=== PATIENT | female | born 1935 | race Caucasian/White ===

== ENCOUNTER 2016-07-09 15:59 | Inpatient (IN) | payer MEDICARE, BC ==
--- NOTE | ~2016-07-09 | HP ---
History And Physical [facility] [address] [place]. [address] NAME: ANANDA SOTO : 34 STATUS : ADM Vy PAT#: [id number] AGE: 81 ADM/REG DATE : 07/09/16 MR#: [id number] REPORT SERV DATE: 07/09/16 DICTATED BY: SANDY REESE DATE: 07/09/16 REPORT STATUS : Draft TRANSCRIBED BY: MODBarbara DATE: 07/09/16 DATE OF ADMISSION: 07/09/2016 CHIEF COMPLAINT: Inability to walk. HISTORY OF PRESENT ILLNESS: The patient is an 81-year-old female. She has a past medical history significant for 1. Atrial fibrillation. She is on chronic Coumadin anticoagulation. 2. She also has a history of hypothyroidism. 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 The patient states that around 2 a.m., she got up to use the restroom and everything was fine. When she got up again between 4 and 4:30 this morning, she noticed that she was unable to hold her balance. She tried to walk to the bathroom and was waving side to side. She was able to bear her own weight but she was not able to walk unassisted without holding onto something. She did not report nausea. She did not report dizziness like she had with her previous hospitalization. She did not feel like her fibrillation was any different. She went to a recliner and throughout the day, had recurrent symptoms, every time she tried to stand up. Her was not supporting her weight but helping her with balance and coordination, back and forth to the bathroom today. When her symptoms did not resolve, she came to the emergency department, that was at least 8 hours after the presumed onset of her symptoms as late as 4:30. Her symptoms have not changed since being here. She states unlike the previous episode, she has not had the degree of dizziness that she had before. She does not describe any visual changes. She does not describe any inner ear pain or trouble hearing or recent sinus symptoms. Her describes her symptoms as more like "being drunk". She is not complaining of any focal weakness. He states she is just generally weak all over. She does note that she was told yesterday her Coumadin number was subtherapeutic and she was told to take a double dose of her Coumadin which she did. Her INR today is 1.3. PAST MEDICAL HISTORY: Otherwise unremarkable. PAST SURGICAL HISTORY: She had a knee surgery in the past. CURRENT MEDICATIONS: Artificial Tears; vitamin C; vitamin D; MSN; Neurontin 600 in the morning, 2400 in the evening; glucosamine; [place] 5/325, Xalatan eyedrops; Synthroid 25; multivitamin; fish oil; Theragran capsule b.i.d.; zinc; and Coumadin 2 mg at bedtime. ALLERGIES: TO SULFA, TETANUS, BISPHOSPHONATES AND IBANDRONATE SODIUM. FAMILY HISTORY: Father passed of heart problems. Mother, CVA. SOCIAL HISTORY: Nondrinker, nonsmoker. REVIEW OF SYSTEMS: History And Physical [address] [address] NAME: ANANDA SOTO : 34 STATUS : ADM Vy PAT#: [id number] AGE: 81 ADM/REG DATE : 07/09/16 MR#: [id number] REPORT SERV DATE: 07/09/16 DICTATED BY: SANDY REESE DATE: 07/09/16 REPORT STATUS : Draft TRANSCRIBED BY: SEBASTIAN DATE: 07/09/16 HEENT as covered in HPI. CARDIOVASCULAR: No chest pain or palpitations. PULMONARY: No shortness of breath. GI: No nausea or vomiting. : No dysuria. NEUROMUSCULOSKELETAL: As covered in HPI. Otherwise 10-point review of systems negative. PHYSICAL EXAMINATION: VITAL SIGNS: Blood pressure 134/70, temperature 98, pulse 72, respirations 16, and sat 100%. GENERAL: She is awake, alert, oriented, in no acute distress. HEENT: Normocephalic, atraumatic. Sclerae nonicteric. NECK: Supple. HEART: Regular rate and rhythm. LUNGS: Clear to auscultation. ABDOMEN: Nontender. Nondistended. EXTREMITIES: Without edema. 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 Her coordination seems to be intact. No past-pointing. No obvious visual changes. No cranial nerve deficit. Lower extremity, she has 3 to 4/5 bilateral lower extremity strength. Her gait was not retested but according to the ER, the patient was able to bear weight but had difficulty with balance and coordination. LAB DATA: CT scan of the brain shows no acute intracranial bleed, mild atrophy. Labs, sodium 142, potassium 4.2, chloride 103, CO2 of 30, BUN and creatinine 21 and 0.7. Glucose of 91. Troponin 0.02. White count 5.1, H and H 12.9 and 39.7, and platelets of 206. Urinalysis, trace ketones, nitrite positive for wbc's, rare bacteria. ASSESSMENT: Weakness, incoordination. Differential would be WINDOW SHADE RING SEWER related to either her previous small vertebral or her atrial fib on subtherapeutic anticoagulation, seems to have minimal symptoms to suggest vertigo or inner ear. Certainly other diagnoses are possible. PLAN: 1. The patient has been admitted. 2. NeuroCheks. 3. We will attempt to discuss with Neurology this evening weighing her potential stroke risk versus bleeding risk versus subtherapeutic INR on atrial fib. Reasonable blood pressure control this evening. PT evaluation. TLF/BRIDGERL Sandy Reese M.D. / [id number] History And Physical [address] [address] NAME: ANANDA SOTO : 34 STATUS : ADM Vy PAT#: [id number] AGE: 81 ADM/REG DATE : 07/09/16 MR#: [id number] REPORT SERV DATE: 07/09/16 DICTATED BY: SANDY REESE DATE: 07/09/16 REPORT STATUS : Draft TRANSCRIBED BY: MODL DATE: 07/09/16 CC: Crissy Frias M.D.
--- NOTE | ~2016-07-09 | CN ---
Consultation Report [facility] [address] [place]. [address] NAME: ANANDA SOTO : 34 STATUS : ADM Vy PAT#: [id number] AGE: 81 ADM/REG DATE : 07/09/16 MR#: [id number] REPORT SERV DATE: 07/10/16 DICTATED BY: DATE: REPORT STATUS : Draft TRANSCRIBED BY: MODL DATE: 07/10/16 NEUROLOGY CONSULTATION DATE OF CONSULTATION: 07/10/2016 REASON FOR CONSULT: Gait abnormality. HISTORY OF PRESENT ILLNESS: This is an 81-year-old female who presented to [facility] secondary to acute onset of gait abnormality. Reports symptoms started when the patient was awake at roughly 4 o'clock in the morning on 07/09/2016. The patient was noted to have difficulty walking. Per H and P, the patient supposedly was noted to have balance issue, so according to the patient she reports difficulty to move bilateral lower extremity. Reports when she stands up, feel like bilateral lower extremities are weak in strength and have to give out. The patient reports the symptom has remained stable without significant changes. Denies weakness in bilateral upper extremity and denies any diplopia. Denies any sensory changes and denies any dysarthria. The patient denies similar symptoms in the past. The patient does report bilateral lower extremity neuropathy with numbness in bilateral lower extremity ongoing for several years without significant changes. No reports of recent bowel or bladder difficulties, although the patient does report diarrhea since the hospital admission. The patient denies any recent illness, fever, chills, nausea, vomiting, chest pain, or shortness of breath, and denies any recent infections. The patient in addition also denies any recent changes in medication. PAST MEDICAL HISTORY: Significant for atrial fibrillation, peripheral neuropathy. The patient was noted to have bilateral lower extremity numbness that has been ongoing for several years. The patient is on chronic anticoagulation secondary to atrial fibrillation as well as history of hypothyroidism. SOCIAL HISTORY: Denies tobacco, alcohol, or recreational drug usage. FAMILY HISTORY: Significant for heart disease as well as stroke. ALLERGIES: THE PATIENT REPORTS ALLERGY TO SULFA, TETANUS, BISPHOSPHONATES, WELL IBANDRONATE. MEDICATIONS: The patient's home medications consist of Coumadin as well as Artificial Tear, vitamin C, vitamin B12, Neurontin, glucosamine, hydrocodone, Xalatan eyedrops, Synthroid, multivitamin, and fish oil. REVIEW OF SYSTEMS: Negative except for those mentioned in HPI. PHYSICAL EXAMINATION: VITAL SIGNS: At the time of evaluation, the patient was noted to have vital signs with T- Consultation Report [place] [id number] [facility] [place]. [address] NAME: ANANDA SOTO : 34 STATUS : ADM Vy PAT#: [id number] AGE: 81 ADM/REG DATE : 07/09/16 MR#: [id number] REPORT SERV DATE: 07/10/16 DICTATED BY: DATE: REPORT STATUS : Draft TRANSCRIBED BY: MODL DATE: 07/10/16 max of 98.4, heart rate of 66 to 95, respiration of 18 to 23, blood pressure of 130 to 134 over 60 to 68. GENERAL: The patient is well developed, well nourished, in no acute distress. CARDIOVASCULAR: Regular rate and rhythm. NECK: No carotid bruits were otherwise auscultated. PULMONARY: Clear to auscultation bilaterally. NEUROLOGIC: Generally, the patient is alert, oriented to person, place, year, as well as month. Follows simple and two-step commands. No dysarthria or aphasia was noted at time of evaluation. Intact registration. Mild difficulties with recall. Cranial nerves 2 through 12. Pupils are equal, round, and reactive to light. Extraocular eye movement was noted to be intact. No clear dysconjugate gaze was seen. The patient denies any diplopia. She was noted to have intact peripheral vision by erdsn-jk-djneag response. Symmetrical facial expression and sensation. Midline tongue. Normal palatal movement. Mild decreased hearing in bilateral ears. 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 Normal emxmdg-sb-dzsm examination without ataxia. Reports symmetrical sensation in bilateral upper extremity, 4/5,bilateral lower extremity proximal strength, 4+/5 bilateral lower extremity distal strength, reports absent sensation in bilateral feet. The patient reports decreased sensation in bilateral lower extremity around bilateral knee. The patient was noted to be areflexic. The patient demonstrate mildly wide-based gait as well as unsteady gait. The patient was noted to have bilateral lower extremity peripheral weakness when ambulating. No asterixis or myoclonus was observed during the evaluation. LABORATORY STUDIES: Demonstrated white blood cell count of 5.1, hemoglobin of 12.9, hematocrit of 39.7, platelet count of 206. The patient was also noted to have an INR 1.5. Chemistry panel: Sodium 142, potassium 4.2, chloride 103, bicarb 30, BUN of 21, creatinine 0.70, glucose of 91, calcium of 8.7, serum TSH was 1.05. Urinalysis demonstrated negative leukocyte esterase, positive nitrite. CT scan of the brain otherwise demonstrated no acute process. IMPRESSION: Gait abnormality. The patient reports weakness in bilateral lower extremity that is acute onset, otherwise on examination the patient was noted to be areflexic. The patient was noted to have weakness in proximal bilateral lower extremity as well as bilateral upper extremity, concern for possible stroke versus Guillain-Talco syndrome. We will obtain MRI of the brain as well as C-spine for evaluation. We will check the patient's ammonia, vitamin B12, folate, CPK level with morning labs. If the patient's MRI of brain and C-spine is otherwise negative, we will obtain a lumbar puncture for evaluation and start the patient on IVIG. Meanwhile, we will obtain PT and OT evaluation and treatment. RECOMMENDATION: 1. MRI of the brain and C-spine without contrast. 2. PT/OT. 3. Fasting lipid panel, hemoglobin A1c, CPK, ammonia, folate, vitamin B12 level with morning labs. 4. Aspirin and Coumadin. Consultation Report [address] [place]. [address] NAME: ANANDA SOTO : 34 STATUS : ADM Vy PAT#: [id number] AGE: 81 ADM/REG DATE : 07/09/16 MR#: [id number] REPORT SERV DATE: 07/10/16 DICTATED BY: DATE: REPORT STATUS : Draft TRANSCRIBED BY: MODL DATE: 07/10/16 5. Lipitor 80 mg p.o. at bedtime. 6. Respiratory therapist for NIF and vital capacity. Check UT. 7. Lumbar puncture if MRI of the brain and C-spine is otherwise negative. [facility]/MODL Pradeep Villeda MD / [id number] CC: MD Crissy Real II, M.D.
--- NOTE | ~2016-07-09 | DS ---
Discharge Summary [facility] [address] [place]. [address] NAME: ANANDA SOTO : 34 STATUS : DIS IN PAT#: [id number] AGE: 81 ADM/REG DATE : 07/10/16 MR#: [id number] REPORT SERV DATE: 07/12/16 DICTATED BY: DATE: REPORT STATUS : Draft TRANSCRIBED BY: MODL DATE: 07/11/16 ADMISSION DATE: 07/10/2016 DISCHARGE DATE: 07/11/2016 PRIMARY NEUROLOGIST: Abdiaziz Flores M.D., PhD. DISCHARGE DIAGNOSES: 1. Bilateral lower extremity weakness/gait abnormality, resolved. 2. Paroxysmal atrial fibrillation. 3. Chronic peripheral neuropathy. 4. Chronic hypothyroidism. CONSULTATIONS: Dr. Lauren Villeda, Neurology. PERTINENT TEST AND PROCEDURES: 1. CT of the brain without contrast, 07/09/2016, impression: Exam is negative for any acute intracranial bleed. Mild atrophy. 2. Echocardiogram, 07/10/2016, summary: Normal left ventricular size with moderate global left ventricular systolic dysfunction. Ejection fraction 35% to 40%. Mild left ventricular diastolic function. Normal right ventricular size and systolic function. Lxxx-bf-kixvkkeu severe mitral annular calcification. Mitral valve leaflets thickened with mildly restricted leaflet mobility. Aortic valve is mildly calcified with preserved leaflet mobility. Mild aortic and mitral regurgitation. No significant aortic stenosis or mitral stenosis noted. No pericardial effusion. No evidence of a pleural effusion. 3. MRI of the cervical spine, 07/10/2016, impression:. a. Posterior disk osteophyte complexes from C4 through 5 through C6 through 7 producing mild multilevel spinal canal narrowing. No cord deformity or abnormal cord signal identified. b. Neural foramina are not optimally evaluated due to patient motion. Appears to be multilevel neural foraminal narrowing from C4 through C5 through C6 through C7 bilaterally. 4. MRI of brain without contrast, 07/10/2016, impression: No acute intracranial abnormality. Mild cortical volume loss and findings compatible with mild chronic deep white matter ischemic changes. 5. MRIP/MRAG of neck without contrast, 07/10/2016, impression:. a. Poor signal in the internal carotid arteries bilateral at the level of the skull base likely due to patient motion and direction of flow. b. No high-grade stenosis seen involving the cervical portions of the common or internal carotid arteries bilaterally. c. 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 d. Widely patent dominant right vertebral artery. Left vertebral artery is a nondominant small caliber vessel and appears to terminate at the PICA level and does not supply the basilar artery. 6. MRIP/MRI of brain without contrast:. Discharge Summary [facility] [address] [place]. [address] NAME: ANANDA SOTO : 34 STATUS : DIS IN PAT#: [id number] AGE: 81 ADM/REG DATE : 07/10/16 MR#: [id number] REPORT SERV DATE: 07/12/16 DICTATED BY: DATE: REPORT STATUS : Draft TRANSCRIBED BY: MODL DATE: 07/11/16 a. No acute intracranial abnormality appreciated. b. Mild cortical volume loss and findings compatible with mild chronic deep white matter ischemic changes. 7. Urinalysis specimen collected 07/09, result negative. CHIEF COMPLAINT UPON ADMISSION: Inability to walk. HOSPITAL COURSE: Please refer to history and physical dated 07/09/2016, provided by Dr. Radhames Rodrigues for complete details of patient's initial presentation upon admission and health history. Please also refer to consultation dated 07/10/2016, provided by Dr. Lauren Villeda, Neurology. Briefly, the patient is an 81-year-old female who presented to [facility] on 06/08 with complaints of gait abnormality. Per patient's report, symptoms started around 4 a.m. on the day of admission. The patient reported difficulty walking due to an acute onset of a balance issue. The patient also stated she had difficulty moving bilateral lower extremities due to weakness. Prior to admission, the patient remained home throughout the day, suffering from recurrent symptoms without relief. The patient's described her symptoms like "being drunk." There were no complaints of focal weakness, just general weakness all over. The patient was admitted for further evaluation and diagnostic testing to rule out COMMERCIAL ANALYST related etiology. Neurology was consulted and has followed the patient since admission. 1. Bilateral lower extremity weakness/gait abnormality, acute onset. The patient's gait has continued to improve throughout admission and has almost returned to baseline. Neurology was consulted on 06/09. Initial workup included MRI of the brain and C-spine in addition to fasting lab work to include fasting lipid panel, hemoglobin A1c, CPK, ammonia, folate, and vitamin B12 levels. Initial differential diagnosis included concern for possible stroke versus Guillain-Pax syndrome. MRI of the brain was negative for any acute events. MRA of head and neck negative for significant stenosis. MRI of C-spine negative for cord compression. Echocardiogram was negative for apical thrombus. A final Neurology impression was questionable mild Guillain-Pax syndrome. Initial plan was to proceed with lumbar puncture and IVIG treatment. However, the patient wished to go home secondary to improving during admission. The patient was discharged from Neurology's care with recommendations to follow up with primary care physician in one-two weeks and PT/OT home healthcare evaluation and treat. 2. Paroxysmal atrial fibrillation. The patient is on chronic anticoagulation with warfarin. INR is managed on an outpatient basis. The patient's last INR check was 06/07, at which time INR was reported to be "low" per patient. The patient was advised to double the p.m. night dose and then to return to normal dosing. The patient will follow up routinely for INR checks. 3. Peripheral neuropathy. The patient's A1c was 5.4. The patient has no history of diabetes. Neuropathy is idiopathic in nature and has been present for years per patient's report. The patient has been on gabapentin for approximately 10 years. Current dose is gabapentin 600 mg every a.m. and 2400 mg every p.m. The patient was questioned regarding high dose of gabapentin at bedtime. The patient states she has Discharge Summary [place] [id number] [facility] [place]. [address] NAME: ANANDA SOTO : 34 STATUS : DIS IN PAT#: [id number] AGE: 81 ADM/REG DATE : 07/10/16 MR#: [id number] REPORT SERV DATE: 07/12/16 DICTATED BY: DATE: REPORT STATUS : Draft TRANSCRIBED BY: MODL DATE: 07/11/16 taken that dose for approximately 10 years. Gabapentin is noted to have side effects to include ataxia. The patient was advised to alert Dr. Flores, her primary neurologist of recent hospitalizations secondary to gait abnormality. 4. Hypothyroidism. The patient's TSH was within normal limits and reported to be 1.050. Continue home dose of levothyroxine. DISCHARGE CONDITION: At the time of discharge, the patient is hemodynamically stable and able to ambulate without assistance. Physical therapy evaluated the patient and it was advised that the patient use her home walker continuously until re-evaluation per primary care for safety and fall risk reduction. DISCHARGE DIET: Regular diet as tolerated. DISCHARGE MEDICATIONS: 1. Vitamin C 500 mg tablet, take 1000 mg p.o. daily. 2. Aspirin 81 mg p.o. daily at bedtime. This was added per Neurology. 3. Vitamin B12 1000 mcg p.o. daily. 4. Flecainide 50 mg tablet p.o. daily. 5. Neurontin 600 mg tablet p.o. daily. 6. Neurontin 600 mg tablet, take 2400 mg p.o. at bedtime. 7. [place] 5/325 mg tablet p.o. daily at bedtime. 8. Xalatan 0.005% ophthalmic solution, one drop both eyes at bedtime. 9. Synthroid 25 mcg p.o. daily. 10.Zcpc-cue-ijkrjfk multivitamin one tablet p.o. daily. 11.[place]-3 fish oil 1200 mg p.o. daily. 12.J[place] 2 mg tablet p.o. at bedtime. 13.Theragran over the counter one tablet p.o. twice daily. 14.DMSO two capsule over the counter 1500 mg p.o. daily. 15.Htkk-sbj-xpvhitd zinc tablet 50 mg p.o. daily. 16.Glucosamine one tablet p.o. daily. 17.Artificial tears one drop in each eye twice daily. DISCHARGE INSTRUCTIONS: 1. Follow up with Dr. Frias, primary care provider in one-two weeks. 2. Home healthcare PT/OT eval and treat. The patient and her were instructed to monitor for changes in neurological status to include recurrence of abnormal gait, inability to walk, drooping of the mouth, right or left sided weakness, slurred speech, or any other deviations from her baseline health status at the time of this discharge. The patient was encouraged to return to the emergency department promptly if any of these signs or symptoms recur. Asymmetrical smile and slurred speech. The patient was advised to return to the emergency department upon recurrence of any symptoms that are deviations from her baseline status at the time of this discharge. [facility]/MODL Discharge Summary [facility] [address] [facility] [place]. [address] NAME: ANANDA SOTO : 34 STATUS : DIS IN PAT#: [id number] AGE: 81 ADM/REG DATE : 07/10/16 MR#: [id number] REPORT SERV DATE: 07/12/16 DICTATED BY: DATE: REPORT STATUS : Draft TRANSCRIBED BY: SEBASTIAN DATE: 07/11/16 Aertha Coronado SCIENTIFIC SOFTWARE DEVELOPER-C / [id number] CC: MD Crissy Real II, M.D.
[2016-07-09 15:41] LABS: BASOPHILS 0.4 %; BASOPHILS ABSOLUTE 0.02 10/3/uL (0.0-0.16); EOSINOPHILS 2.5 %; EOSINOPHILS ABSOLUTE 0.13 10/3/uL (0.0-0.53); HEMATOCRIT 39.7 % (36.0-48.0); HEMOGLOBIN 12.9 g/dL (12.0-16.0); IMMATURE GRANULOCYTES 0.2 %; IMMATURE GRANULOCYTES ABSOLUTE 0.01 10/3/uL (0.0-0.11); LYMPHOCYTES 33.9 %; LYMPHOCYTES ABSOLUTE 1.73 10/3/uL (0.67-4.30); MEAN CORPUS HGB CONC 32.5 g/dL (32.0-36.0); MEAN CORPUSCULAR HEMOGLOB 29.5 pg (26.0-34.0); MEAN PLATELET VOLUME 10.3 fL (9.2-13.0); MONOCYTES 6.5 %; MONOCYTES ABSOLUTE 0.33 10/3/uL (0.21-1.20); NEUTROPHILS 56.5 %; NEUTROPHILS ABSOLUTE 2.89 10/3/uL (2.02-8.40); PLATELET COUNT 206 10/3/uL (150-400); RBC DISTRIBUTION WIDTH 14.5 % (12.0-16.0); RED CELL COUNT 4.37 10/6/uL (4.0-5.6); WHITE BLOOD CELLS 5.1 10/3/uL (4.5-10.5)
[2016-07-09 15:45] LABS: MANUAL DIFF NO %; MEAN CORPUSCULAR VOLUME 90.8 fL (80-100)
[2016-07-09 15:47] LABS: ASCORBIC ACID (UR NOT ORDER) NEG (NEG); BILIRUBIN, URINE NEGATIVE (NEG); ER URINALYSIS TAT 0 Hrs 12 Mins; KETONE, URINE TRACE MG/DL (NEG); LEUKOCYTE ESTERASE(NOT OR NEG (NEG); NITRITE (URINE) POS (NEG); WBC (NOT ORDERED) (RFLEX) 4 (0-5)
[2016-07-09 15:51] LABS: INTERNATIONAL NORMAL RATI 1.3 UNITS (-); PARTIAL THROMBO TIME 28.2 SEC (22.5-37.2); PROTIME (NOT ORD) 15.8 SEC (12.0-14.5)
[2016-07-09 15:59] LABS: A/G RATIO 1.4 (0.7-1.9); ALBUMIN 3.9 G/DL (3.5-5.0); ALKALINE PHOSPHATASE 68 U/L (45-117); BUN (BLOOD UREA NITROGEN) 21 MG/DL (6-23); CALCIUM, SERUM 8.7 MG/DL (8.5-10.4); CHLORIDE, SERUM 103 MMOL/L (96-112); CO2 (CARBON DIOXIDE) 30 MMOL/L (24-34); GFR AFRICAN AMERICAN 94 ML/MIN (>=60); GFR NON AFRICAN AMERICAN 81 ML/MIN (>=60); GLOBULIN 2.7 G/DL (2.5-4.1); GLUCOSE, SERUM 91 MG/DL (60-99); POTASSIUM, SERUM 4.2 MMOL/L (3.5-5.3); SGOT(AST) 13 U/L (5-40); SGPT(ALT) 15 U/L (5-65); SODIUM, SERUM 142 MMOL/L (135-148); TOTAL BILIRUBIN 0.6 MG/DL (0-1.2); TOTAL PROTEIN 6.6 G/DL (6.0-8.5); TROPONIN I 0.02 NG/ML (<0.05)
[~2016-07-09 15:59] MED LIST: ASABAYER PO; CALTRA600D PO; CRANBERRY475 MG OR; CYANO1000T PO; FISH OIL1200 MG PO; FLECAINIDE50 MG PO; GLUCOSAMINEPO PO; HALF81 PO; IRON325 MG PO; JANTOVEN2 MG PO; L20 PO; LEVOTHYROXIN25 MCG PO; LEVOXYL25 MCG PO; LIPITOR80 MG PO; MIRALAXPKT PO; MSM500 MG PO; MULTIVIT/MIN PO; MULTIVITAMI1 PO; NATURA2 OPH; NEUR600 PO; NORCO1 TA1 PO; PLAVIX PO; PROLOP100 PO; REST15 PO; SYN.025B PO; TAMBO50 PO; TEARS PURE OPH; VITAMIN B12 OTC PO; VITAMIN C OTC PO; VITAMIN D31000 UNIT PO; VITC500 PO; XALAT OPH; ZINC TABLET PO; [UNRECOGNIZED DRUG - OTHER] PO
[2016-07-10 05:59] LABS: INTERNATIONAL NORMAL RATI 1.5 UNITS (-); PROTIME (NOT ORD) 17.5 SEC (12.0-14.5)
[2016-07-10 13:09] LABS: CPK 71 U/L (0-200)
[2016-07-10 13:10] LABS: CK-MB 1.2 NG/ML; FOLATE 41.4 NG/ML (>5.2)
[2016-07-11 05:29] LABS: BASOPHILS 0.7 %; BASOPHILS ABSOLUTE 0.03 10/3/uL (0.0-0.16); EOSINOPHILS 3.7 %; EOSINOPHILS ABSOLUTE 0.17 10/3/uL (0.0-0.53); HEMATOCRIT 39.8 % (36.0-48.0); HEMOGLOBIN 13.4 g/dL (12.0-16.0); IMMATURE GRANULOCYTES 0.2 %; IMMATURE GRANULOCYTES ABSOLUTE 0.01 10/3/uL (0.0-0.11); LYMPHOCYTES 38.6 %; LYMPHOCYTES ABSOLUTE 1.77 10/3/uL (0.67-4.30); MEAN CORPUS HGB CONC 33.7 g/dL (32.0-36.0); MEAN CORPUSCULAR HEMOGLOB 30.3 pg (26.0-34.0); MEAN PLATELET VOLUME 10.7 fL (9.2-13.0); MONOCYTES 8.1 %; MONOCYTES ABSOLUTE 0.37 10/3/uL (0.21-1.20); NEUTROPHILS 48.7 %; NEUTROPHILS ABSOLUTE 2.23 10/3/uL (2.02-8.40); PLATELET COUNT 196 10/3/uL (150-400); RBC DISTRIBUTION WIDTH 14.3 % (12.0-16.0); RED CELL COUNT 4.42 10/6/uL (4.0-5.6); WHITE BLOOD CELLS 4.6 10/3/uL (4.5-10.5)
[2016-07-11 05:30] LABS: MANUAL DIFF NO %
[2016-07-11 05:36] LABS: INTERNATIONAL NORMAL RATI 1.7 UNITS (-); PROTIME (NOT ORD) 19.5 SEC (12.0-14.5)
[2016-07-11 05:47] LABS: CALCIUM, SERUM 8.5 MG/DL (8.5-10.4); CHLORIDE, SERUM 107 MMOL/L (96-112); CO2 (CARBON DIOXIDE) 27 MMOL/L (24-34); CREATININE 0.59 MG/DL (0.55-1.02); GFR AFRICAN AMERICAN 99 ML/MIN (>=60); GFR NON AFRICAN AMERICAN 85 ML/MIN (>=60); GLUCOSE, SERUM 96 MG/DL (60-99); HDL CHOLESTEROL 86 MG/DL (> 49); POTASSIUM, SERUM 3.8 MMOL/L (3.5-5.3); SODIUM, SERUM 144 MMOL/L (135-148)
[2016-07-11 05:49] LABS: BUN (BLOOD UREA NITROGEN) 27 MG/DL (6-23); CHOL/HDL RATIO(NOT ORDER) 2.3 (0-5); CHOLESTEROL 194 MG/DL (< 200); LDL CHOLESTEROL 90 MG/DL (< 130); NON-HDL CHOLESTEROL 108 MG/DL (< 160); TRIGLYCERIDE 90 MG/DL (< 150)
[2016-07-11] MEDS ORDERED: ASAB PO (16:31)
[2016-07-11] MEDS ORDERED: FLECAINIDE50 MG PO (16:31)
[2016-11-30] MEDS ORDERED: JANTOVEN3 MG PO (13:39)
[2016-11-30] MEDS ORDERED: CRAN CONC500 MG PO (13:41)
[2016-11-30] MEDS ORDERED: CENTRUM PO (13:43)
[2016-11-30] MEDS ORDERED: FLEXI JOIN1 PO (13:44)
[2016-12-04] MEDS ORDERED: NORCO1 TA1 PO (13:52)
== END 2016-07-11 16:56 | disposition home health service (06) | DRG 93 ==
LOC: ER 15:59 → CDU1 19:53 → CDU2 20:46
PROVIDERS: Hospitalist; Internal Medicine
DX: R26.0 Ataxic gait (principal); I48.0 Paroxysmal atrial fibrillation; G60.9 Hereditary and idiopathic neuropathy, unspecified; E03.9 Hypothyroidism, unspecified; R19.7 Diarrhea, unspecified; Z79.01 Long term (current) use of anticoagulants; Z79.82 Long term (current) use of aspirin
CPT/HCPCS: 70450; 70544; 70547; 70551; 72141; 80048; 80053; 80061; 81001; 82140; 82550; 82553; 82607; 82746; 83036; 84443; 84484; 85025; 85610; 85730; 93005; 93306; 97161-GP; 99285; A9270-GY; G8978-CI-GP; G8979-CI-GP; G8980-CI-GP